=== PATIENT | male | born 2000 | race Caucasian/White ===

== ENCOUNTER 2021-07-03 16:01 | Emergency (ER) | payer SELFPAY ==
[2021-07-03] MEDS ORDERED: SULF1TAB48 PO (17:24)
[2021-07-03] MEDS ORDERED: CEPH500T PO (17:24)
== END 2021-07-03 16:11 | disposition home or self-care (01) ==
LOC: ER 16:05
DX: Z53.21 Procedure and treatment not carried out due to patient leaving prior to being seen by health care provider (principal)

== ENCOUNTER 2021-07-03 16:50 | Emergency (ER) | payer SELFPAY ==
[~2021-07-03] VITALS: Ht 170.2 cm; Wt 70.3 kg
[2021-07-03] MEDS ORDERED: LIDOCAINE HCL/PF 1% 30 ML VIAL TP ONE (17:00)
[2021-07-03 17:05] VITALS: BP 139/78
--- NOTE | 2021-07-03 17:05 | NUR ---
"swelling/redness Right upper thigh xcouple days ?insect bite"
[2021-07-03] MEDS ORDERED: CEPH500T PO (17:24)
[2021-07-03] MEDS ORDERED: SULF1TAB48 PO (17:24)
--- NOTE | 2021-07-03 17:35 | NUR ---
Patient discharged to home in stable condition. Written and verbal after care instructions given. Patient verbalizes understanding of instruction.
== END 2021-07-03 17:36 | disposition home or self-care (01) ==
LOC: ER 16:58
DX: L02.415 Cutaneous abscess of right lower limb (principal)
CPT/HCPCS: 10060; 99283; J3490